=== PATIENT | male | born 1965 | race Caucasian/White ===

== ENCOUNTER 2020-09-02 10:01 | Outpatient (REF) | payer BC, SELFPAY ==
--- NOTE | 2020-09-02 10:04 | XR_ITS ---
EXAMINATION: XR KNEE STANDING, BILATERAL XR KNEE, LEFT CLINICAL INFORMATION: Pain left knee. COMPARISON: None TECHNIQUE: AP bilateral knee standing. Left knee 2 views. FINDINGS: AP BILATERAL KNEE STANDING: There is mild reduction in medial compartment joint space both knees with mild medial intercondylar spurring. There are no loose bodies or bony erosive changes. The soft tissues are normal. LEFT KNEE: Two views of the left knee reveal no visible fracture, dislocation or bony erosive changes. The soft tissues are normal. XR/XR knee LT 2V IMPRESSION: Mild degenerative spurring medial compartment both knees. No acute fracture or dislocation.
--- NOTE | 2020-09-02 10:04 | XR_ITS ---
EXAMINATION: XR KNEE STANDING, BILATERAL XR KNEE, LEFT CLINICAL INFORMATION: Pain left knee. COMPARISON: None TECHNIQUE: AP bilateral knee standing. Left knee 2 views. FINDINGS: AP BILATERAL KNEE STANDING: There is mild reduction in medial compartment joint space both knees with mild medial intercondylar spurring. There are no loose bodies or bony erosive changes. The soft tissues are normal. LEFT KNEE: Two views of the left knee reveal no visible fracture, dislocation or bony erosive changes. The soft tissues are normal. XR/XR knee standing BI IMPRESSION: Mild degenerative spurring medial compartment both knees. No acute fracture or dislocation.
== END 2020-09-02 10:02 | disposition home or self-care (01) ==
LOC: HO.HOSX 10:01
PROVIDERS: PCP Family Medicine; Visit Provider Orthopaedic Surgery
DX: S89.92XA Unspecified injury of left lower leg, initial encounter (principal); M25.562 Pain in left knee; M25.561 Pain in right knee
CPT/HCPCS: 73560; 73565

== ENCOUNTER 2020-09-22 08:50 | Outpatient (REF) | payer BC, SELFPAY ==
--- NOTE | 2020-09-22 09:07 | MR_ITS ---
EXAMINATION: MR KNEE WITHOUT CONTRAST, LEFT CLINICAL INFORMATION: Other tear of medial meniscus, current injury, left knee, initial encounter. Patient reports felt a pop in left knee 6 weeks ago, then felt weaker and aches, status post shoveling snow. COMPARISON: XR left knee 09/02/2020. TECHNIQUE: MRI of the knee without contrast was performed using routine sequences on a high-field scanner. FINDINGS: MENISCI: Medial Meniscus: There is an irregular partial radial-type tear at the junction of the posterior horn and root of the medial meniscus with [id number]-grade degeneration and partial tearing extending into the posterior root. Additional intrasubstance degenerative signal in the rest of the posterior horn and body. Lateral Meniscus: Intact LIGAMENTS: Cruciate: Intact Collateral: Intact EXTENSOR MECHANISM: Intact ARTICULAR CARTILAGE/BONE: Patellofemoral Compartment: There is a small partial-thickness cartilage fissure in the medial facet of the patella. The femoral trochlear cartilage appears intact. Medial Compartment: The cartilage appears intact. There is mild bone marrow edema in the mid to posterior aspect of the medial tibial plateau which may be reactive to the meniscal pathology. Lateral Compartment: Normal JOINT FLUID AND BURSAE: Trace joint effusion and small Dominguez's cyst. MR/MR knee LT wo con IMPRESSION: 1. Irregular partial radial-type tear at the junction of the posterior horn and root of the medial meniscus with [id number]-grade degeneration and partial tearing extending into the posterior root. 2. Small partial thickness cartilage fissure in the medial facet of the patella. 3. Mild bone marrow edema in the medial tibial plateau which may be reactive to the meniscal pathology. 4. Trace joint effusion and small Dominguez's cyst.
== END 2020-09-22 08:51 | disposition home or self-care (01) ==
LOC: HO.MRI 08:50
PROVIDERS: PCP Family Medicine; Visit Provider Orthopaedic Surgery
DX: S83.242A Other tear of medial meniscus, current injury, left knee, initial encounter (principal)
CPT/HCPCS: 73721